=== PATIENT | female | born 1930 | race African-American/Black ===

== ENCOUNTER 2019-05-27 17:34 | Emergency (ER) | payer OTHER ==
[~2019-05-27] VITALS: Ht 160 cm; Wt 90.7 kg
--- NOTE | ~2019-05-27 | EKG ---
[facility] [place] [address] ELECTROCARDIOGRAM REPORT Name: WATERSMELECIO Upton Room #: [facility]..#: [id number] Admission: Attend Phys: Discharge: Date of : 34 Report #: [id number] THIS REPORT FOR: cc: Wyatt Callahan MD, Neal A. 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
[~2019-05-27 17:34] MED LIST: ACETAMINOPHEN325 M1 PO; ALLOPURINOL 10100 M1 PO; AMLODIPINE BESY10 MG PO; ASPIRIN EC81 M1 PO; CENTRUM SILVER1 EAC5 PO; COLACE100 MG PO; COMBIGAN EYE DR10 ML OPHTHALMIC; CRESTOR10 MG PO; CRESTOR20 MG PO; DIOVAN320 MG PO; GLUCOTROL XL2.5 MG PO; GLUCOTROL5 MG PO; HYDROCODONE-AP1 EAC6 PO; IRON325 PO; LASIX 20 MG TAB20 MG PO; LASIX 40 MG TAB40 M2 PO; MEDROLDOSEPACK PO; NORCO 5-325 TA1 EACH PO; NORVASC5 MG PO; ONDANSETRON HCL4 M2 PO; PAMELOR25 MG PO; PRILOSEC20 MG PO; SENNA8.6 MG PO; ST. JOSEPH ASPI81 M1 PO; TENORMIN25 M1 PO; TOPROL XL25 MG PO; TRAMADOL 50 MG50 MG PO; XALATAN2.5 ML OPHTHALMIC; [UNRECOGNIZED DRUG - OTHER]
[2019-05-27 17:54] LABS: ABSOLUTE NEUTROPHILS 3.9 thou/uL (1.4-8.2); BASOPHILS 1.2 % (0.0-2.0); EOSINOPHILS 4.4 % (0.0-3.0); HEMATOCRIT 37.9 % (37.0-47.0); HEMOGLOBIN 12.3 gm/dL (12.0-15.0); LYMPHOCYTES 33.1 % (24.0-44.0); MCH 28.8 pg (26.0-34.0); MCHC 32.5 g/dL (28.0-37.0); MCV 88.6 fL (80.0-100.0); MONOCYTES 8.5 % (1.0-8.0); PLATELET COUNT 203 thou/uL (150-400); POLYS 52.8 % (36.0-66.0); RBC 4.27 mil/uL (4.20-5.00); RDW 13.8 % (10.5-14.5); WBC 7.5 thou/uL (4.0-11.0)
[2019-05-27 18:00] LABS: ANION GAP 12 mmol/L (7-16); BUN 21 mg/dL (7-18); CALCIUM 10.1 mg/dL (8.5-10.1); CHLORIDE 102 mmol/L (98-107); CO2 27 mmol/L (21-32); CREATININE 1.8 mg/dL (0.6-1.0); GLUCOSE 168 mg/dL (74-106); POTASSIUM 3.2 mmol/L (3.5-5.1); SODIUM 141 mmol/L (136-145)
[2019-05-27 18:10] LABS: ALBUMIN 3.7 g/dL (3.4-5.0); SGOT 19 U/L (15-37); SGPT 22 U/L (30-65); TOTAL BILIRUBIN 0.3 mg/dL (<0.1-1.0); TOTAL PROTEIN 7.5 g/dL (6.4-8.2); TROPONIN-I <0.06 ng/mL (<0.06)
[2019-05-27] MEDS ORDERED: TRAMADOL 50 MG50 MG PO (20:04)
[2019-05-27] MEDS ORDERED: METHOCARBAMOL500 M2 PO (20:04)
[2019-05-27 21:14] VITALS: BP 154/87
== END 2019-05-27 21:14 | disposition home or self-care (01) ==
LOC: ER 17:34
PROVIDERS: Emergency Medicine
DX: M43.6 Torticollis (principal); R07.89 Other chest pain; E83.42 Hypomagnesemia; E87.6 Hypokalemia; I12.9 Hypertensive chronic kidney disease with stage 1 through stage 4 chronic kidney disease, or unspecified chronic kidney disease; E11.22 Type 2 diabetes mellitus with diabetic chronic kidney disease; E78.00 Pure hypercholesterolemia, unspecified; N18.9 Chronic kidney disease, unspecified; K21.9 Gastro-esophageal reflux disease without esophagitis; Z91.013 Allergy to seafood; Z91.041 Radiographic dye allergy status

== ENCOUNTER → 2019-06-03 | Outpatient (CLI) | payer OTHER ==
[~2019-06-03] MED LIST changes: +METHOCARBAMOL500 M2 PO
== END ==
LOC: MRI 10:23
DX: D35.2 Benign neoplasm of pituitary gland (principal)

== ENCOUNTER → 2019-11-26 | Outpatient (CLI) | payer OTHER | LOC: LAB 12:37 | PROVIDERS: ATTEND Nurse Practitioner | DX: R50.9 Fever, unspecified (principal); R05 Cough; Z20.828 Contact with and (suspected) exposure to other viral communicable diseases ==

== ENCOUNTER → 2019-12-27 | Outpatient (CLI) | payer OTHER | LOC: CAT 10:11 | PROVIDERS: ATTEND Nurse Practitioner | DX: R91.8 Other nonspecific abnormal finding of lung field (principal); R50.9 Fever, unspecified; N28.9 Disorder of kidney and ureter, unspecified; I25.10 Atherosclerotic heart disease of native coronary artery without angina pectoris ==

== ENCOUNTER → 2020-01-09 | Outpatient (CLI) | payer OTHER | LOC: ULTRA 10:35 | PROVIDERS: ATTEND Nurse Practitioner | DX: N28.1 Cyst of kidney, acquired (principal) ==

== ENCOUNTER → 2020-07-28 | Outpatient (CLI) | payer OTHER | LOC: CAT 10:26 | PROVIDERS: ATTEND Pediatrics | DX: R91.8 Other nonspecific abnormal finding of lung field (principal); N28.89 Other specified disorders of kidney and ureter ==

== ENCOUNTER → 2020-07-30 | Outpatient (CLI) | payer OTHER | LOC: LAB 07-28 10:25 | PROVIDERS: ATTEND Pediatrics | DX: Z20.822 Contact with and (suspected) exposure to COVID-19 (principal) ==

== ENCOUNTER → 2020-08-03 | Outpatient (CLI) | payer OTHER ==
--- NOTE | 2020-08-06 17:31 | PFR/MVV ---
[facility] [place] [address] PULMONARY FUNCTION MVV/REPORT Name: MELECIO WATERS Room #: [facility]#: [id number] Admission: 08/03/20 Attend Phys: Nolan Jack MD Discharge: Date of : 34 Report #: [id number] THIS REPORT FOR: //name// >> SPIROMETRY: (BTPS) Height: 62 in cm Weight: 209 lbs kg Exam Date: 08/03/20 PRE-RX POST-RX PRED BEST %PRED BEST %PRED %CHG FVC LITERS . 2.17 . 2.67 . 123 . 2.64 . 122 . -1 FEV1 LITERS . 1.39 . 1.77 . 128 . 2.09 . 151 . 18 FEV1/FVC % . 69 . 66 . 97 . 79 . 116 . 19 VJK54-70% L/Sec . 1.63 . 0.74 . 45 . 2.25 . 138 . 205 PEF L/SEC . 4.78 . 5.80 . 121 . 5.02 . 105 . -13 FEF50/FIF50 UNITLESS . <1.00 . 1.45 . . 1.30 . . MVV L/Min . 70 . 48 . 35 f 1/Min . . 75 . >> LUNG VOLUMES: (BTPS) PRE-RX POST-RX PRED AVG %PRED AVG %PRED %CHG VC Liters . 2.17 . 2.67 . 123 . . . TLC Liters . 4.27 . 3.84 . 90 . . . RV Liters . 1.93 . 1.17 . 61 . . . RV/TLC % . 45 . 30 . 68 . . . FRC PL Liters . 2.02 . 1.47 . 73 . . . FRC N2 Liters . 2.02 . . . . . ERV Liters . 0.73 . 0.30 . 41 . . . IC Liters . 1.46 . 2.02 . 138 . . . >> DIFFUSION: DLCO ml/Min/mmHg . 20.3 . 8.0 . 40 . . . DL Vicente ml/Min/mmHg . 20.3 . 8.0 . 40 . . . DLCO/VA ml/Min/mmHg . 3.09 . 4.34 . 140 . . . VA Liters . . 1.85 . . . . COMMENTS: COMMENTS: >> RESISTANCE: [facility] [address] [place] [address] PULMONARY FUNCTION MVV/REPORT Name: MELECIO WATERS Room #: [facility].#: [id number] Admission: 08/03/20 Attend Phys: Nolan Jack MD Discharge: Date of : 34 Report #: [id number] PRE-RX PRED AVG %PRED Raw Total cmH20/L/Sec . . 5.58 . Raw Insp cmH20/L/Sec . . 5.00 . Raw Exp cmH20/L/Sec . . 7.51 . Raw cmH20/L/Sec . 1.97 . 3.50 . 178 Gaw L/Sec/cmH20 . 0.484 . 0.286 . 59 sRaw cmH20 Sec . 3.98 . 9.16 . 230 sGaw l/cmH20 Sec . 0.251 . 0.109 . 43 Vtq Liters . . 2.62 . # = OUTSIDE 95% CONFIDENCE INTERVAL CALIBRATION: PRED: 3.00 ACTUAL: EXP 3.01 INSP 3.02 [facility] N-1804-4 >> INTERPRETATION/IMPRESSION: Spirometric examination shows normal flows. There was significant bronchodilator response. Lung volumes were normal. Diffusion capacity is markedly reduced, but normal when corrected for alveolar volume. Flow volume loop is normal. IMPRESSION: Normal pulmonary functions, significant response to bronchodilators suggestive of reactive airway disease. Diffusion capacity is markedly reduced. Clinical correlation is recommended. <ELECTRONICALLY SIGNED> By: Sage Leyva MD 08/06/20 1731 Sage Leyva MD /nt
== END ==
LOC: PUL 09:14
PROVIDERS: ATTEND Pediatrics
DX: R91.1 Solitary pulmonary nodule (principal); R06.00 Dyspnea, unspecified; Z88.8 Allergy status to other drugs, medicaments and biological substances

== ENCOUNTER → 2020-12-21 | Outpatient (CLI) | payer OTHER | LOC: SJCVC 10:44 | PROVIDERS: ATTEND Internal Medicine | DX: I12.9 Hypertensive chronic kidney disease with stage 1 through stage 4 chronic kidney disease, or unspecified chronic kidney disease (principal); E11.22 Type 2 diabetes mellitus with diabetic chronic kidney disease; N18.30 Chronic kidney disease, stage 3 unspecified; E78.5 Hyperlipidemia, unspecified; R00.1 Bradycardia, unspecified; Z79.82 Long term (current) use of aspirin; Z79.899 Other long term (current) drug therapy; Z72.89 Other problems related to lifestyle; Z88.2 Allergy status to sulfonamides; Z88.1 Allergy status to other antibiotic agents; Z88.8 Allergy status to other drugs, medicaments and biological substances ==

== ENCOUNTER → 2021-02-18 | Outpatient (CLI) | payer OTHER | LOC: CAT 09:14 | PROVIDERS: ATTEND Pediatrics | DX: R91.8 Other nonspecific abnormal finding of lung field (principal); I25.10 Atherosclerotic heart disease of native coronary artery without angina pectoris; I70.0 Atherosclerosis of aorta; M47.814 Spondylosis without myelopathy or radiculopathy, thoracic region ==

== ENCOUNTER → 2021-03-01 | Outpatient (CLI) | payer OTHER ==
[~2021-03-01] VITALS: Ht 157.5 cm; Wt 97.1 kg
[~2021-03-01] MED LIST changes: +B COMPLEX1 EACH PO; +BREO ELLIPTA 11 EACH INH; +CALCITRIOL0.25 MCG PO; +LIDOCAINE35.44 GM TOP; +MAGNESIUM250 M1 PO; +OMEPRAZOLE10 MG PO; +PROAIR HFA8.5 GM INH; +TRESIBA FL100 UNIT/1 SQ; +VITAMIN D3 COM1 EACH PO
[2021-03-01 10:40] VITALS: BP 141/73
--- NOTE | 2021-03-01 10:41 | NUR ---
Pain Clinic Assessment: 1. History of Osteoarthritis: FEET HANDS KNEES History of Rheumatoid Arthritis: Not Applicable 2. Height: 5 ft. 2 in. 157.5 cm. Weight: 214.0 lb. oz. 97.070 kg. Patient's BMI: 39.1 3. Vital Signs: BP: 141/73 Pulse: 71 Resp: 16 Temp: 02 Sat: 99 ECG Mon: 4. Pain Intensity: 7 5. Fall Risk: Dizziness: N Needs help standing or walking: N Fallen in the last 3 months: N Fall risk comments: 6. Patient on Blood Thinner: None 7. History of Hypertension: Y 8. Opioid Therapy greater than 6 weeks: N Opiate Contract Signed: 9. Risk Assessment Tool Provided: LOW-1 10. Functional Assessment Tool: 11. Recreational Drug Use: Never Drug Type: Tobacco Use: Never Smoker Tobacco Type: Amount or Packs/day: How Many Years: Alcohol Use: Yes Frequency: Daily Quant: 1
== END ==
LOC: PAIN
PROVIDERS: ATTEND Anesthesiology Pain Medicine
DX: M47.26 Other spondylosis with radiculopathy, lumbar region (principal); M48.062 Spinal stenosis, lumbar region with neurogenic claudication; M25.551 Pain in right hip; M25.552 Pain in left hip; I12.9 Hypertensive chronic kidney disease with stage 1 through stage 4 chronic kidney disease, or unspecified chronic kidney disease; E11.22 Type 2 diabetes mellitus with diabetic chronic kidney disease; N18.9 Chronic kidney disease, unspecified; Z96.641 Presence of right artificial hip joint; Z96.651 Presence of right artificial knee joint; Z90.710 Acquired absence of both cervix and uterus; Z88.8 Allergy status to other drugs, medicaments and biological substances; Z79.82 Long term (current) use of aspirin; Z79.4 Long term (current) use of insulin; Z79.899 Other long term (current) drug therapy

== ENCOUNTER → 2021-03-04 | Outpatient (CLI) | payer OTHER | LOC: SJCVCIMAG 08:10 | PROVIDERS: ATTEND Internal Medicine | DX: I71.4 Abdominal aortic aneurysm, without rupture (principal); E11.9 Type 2 diabetes mellitus without complications; N18.9 Chronic kidney disease, unspecified; E78.00 Pure hypercholesterolemia, unspecified; I12.9 Hypertensive chronic kidney disease with stage 1 through stage 4 chronic kidney disease, or unspecified chronic kidney disease; N18.30 Chronic kidney disease, stage 3 unspecified; K21.9 Gastro-esophageal reflux disease without esophagitis; Z72.89 Other problems related to lifestyle; Z79.82 Long term (current) use of aspirin; Z79.891 Long term (current) use of opiate analgesic; Z79.899 Other long term (current) drug therapy; Z79.4 Long term (current) use of insulin; Z88.2 Allergy status to sulfonamides; Z88.8 Allergy status to other drugs, medicaments and biological substances; Z91.013 Allergy to seafood ==

== ENCOUNTER → 2021-03-15 | Outpatient (CLI) | payer OTHER ==
[~2021-03-15] VITALS: Ht 157.5 cm; Wt 97.1 kg
[2021-03-15 12:36] VITALS: BP 151/81
--- NOTE | 2021-03-15 12:50 | NUR ---
Pain Clinic Assessment: 1. History of Osteoarthritis: FEET HANDS KNEES History of Rheumatoid Arthritis: Not Applicable 2. Height: 5 ft. 2 in. 157.5 cm. Weight: 214.0 lb. oz. 97.070 kg. Patient's BMI: 39.1 3. Vital Signs: BP: 151/81 Pulse: 90 Resp: 16 Temp: 02 Sat: 98 ECG Mon: 4. Pain Intensity: 5 5. Fall Risk: Dizziness: Y Needs help standing or walking: Y Fallen in the last 3 months: Y Fall risk comments: 6. Patient on Blood Thinner: None 7. History of Hypertension: Y 8. Opioid Therapy greater than 6 weeks: N Opiate Contract Signed: 9. Risk Assessment Tool Provided: LOW-1 10. Functional Assessment Tool: 11. Recreational Drug Use: Never Drug Type: Tobacco Use: Never Smoker Tobacco Type: Amount or Packs/day: How Many Years: Alcohol Use: Yes Frequency: Daily Quant: 1
== END | disposition home or self-care (01) ==
LOC: PAIN 08:26
PROVIDERS: ATTEND Anesthesiology Pain Medicine
DX: M54.16 Radiculopathy, lumbar region (principal); M48.061 Spinal stenosis, lumbar region without neurogenic claudication; M17.12 Unilateral primary osteoarthritis, left knee; I10 Essential (primary) hypertension; M19.90 Unspecified osteoarthritis, unspecified site; Z98.890 Other specified postprocedural states; Z79.899 Other long term (current) drug therapy; Z91.041 Radiographic dye allergy status; Z88.8 Allergy status to other drugs, medicaments and biological substances

== ENCOUNTER → 2021-04-12 | Outpatient (CLI) | payer OTHER ==
[~2021-04-12] VITALS: Ht 157.5 cm; Wt 99.3 kg
[2021-04-12 09:50] VITALS: BP 174/85
--- NOTE | 2021-04-12 09:54 | NUR ---
Pain Clinic Assessment: 1. History of Osteoarthritis: FEET HANDS KNEES History of Rheumatoid Arthritis: Not Applicable 2. Height: 5 ft. 2 in. 157.5 cm. Weight: 219.0 lb. oz. 99.338 kg. Patient's BMI: 40.0 3. Vital Signs: BP: 174/85 Pulse: 80 Resp: 18 Temp: 02 Sat: 97 ECG Mon: 4. Pain Intensity: 5 5. Fall Risk: Dizziness: N Needs help standing or walking: N Fallen in the last 3 months: N Fall risk comments: 6. Patient on Blood Thinner: None 7. History of Hypertension: Y 8. Opioid Therapy greater than 6 weeks: N Opiate Contract Signed: 9. Risk Assessment Tool Provided: LOW-1 10. Functional Assessment Tool: 11. Recreational Drug Use: Never Drug Type: Tobacco Use: Never Smoker Tobacco Type: Amount or Packs/day: How Many Years: Alcohol Use: Yes Frequency: Quant:
== END | disposition home or self-care (01) ==
LOC: PAIN 03-29 08:42
PROVIDERS: ATTEND Anesthesiology Pain Medicine
DX: M25.562 Pain in left knee (principal); M17.12 Unilateral primary osteoarthritis, left knee; M47.816 Spondylosis without myelopathy or radiculopathy, lumbar region; M48.061 Spinal stenosis, lumbar region without neurogenic claudication; I12.9 Hypertensive chronic kidney disease with stage 1 through stage 4 chronic kidney disease, or unspecified chronic kidney disease; M19.90 Unspecified osteoarthritis, unspecified site; N18.9 Chronic kidney disease, unspecified; Z91.041 Radiographic dye allergy status; Z88.8 Allergy status to other drugs, medicaments and biological substances; Z98.890 Other specified postprocedural states; Z79.899 Other long term (current) drug therapy